=== PATIENT | female | born 1980 | race Caucasian/White ===

== ENCOUNTER 2016-05-18 09:54 | Emergency (ER) | payer MEDICAID ==
--- NOTE | 2016-06-10 21:30 | ER ---
ADMIT: 05/18/2016 RM/LOC: ER [facility] MR#: [id number] [facility] [place], [place] [id number] PRAKASH SMITH [address] [place] [address] Emergency Room Report SEX: F AGE: 35 : 1980 DATE: 05/18/2016 ADDENDUM: This patient comes to the ER because she has had pain in her left side of her abdomen for the last week. She is vomiting and diarrhea on and off. She rates the pain as a 9/10. On physical exam, her pain is in the left middle side of her abdomen between the upper and lower quadrant. There is no rebound, tenderness, or guarding. No tenderness to percussion in either flank area. Her CBC and her BMP were normal. CAT scan showed a possible dermoid cyst. Ultrasound showed a cyst but she did have a lot of scar tissue and he thought maybe she had a calcified hematoma, but there was nothing acute on the scan. I did give her Gillett and Zofran and she is to follow up with Dr. Langley in the office this week. Please see my T-sheet. CHANELL Ortega / Florentino Acevedo MD / tj JOB #: [id number] CC: Florentino Acevedo MD, Attending Physician Urbano Arceo MD, Family Physician
== END 2016-05-18 14:45 | disposition home or self-care (01) ==
LOC: ER 09:54
DX: R10.32 Left lower quadrant pain (principal); R19.7 Diarrhea, unspecified; Z90.710 Acquired absence of both cervix and uterus; Z90.89 Acquired absence of other organs